=== PATIENT | male | born 1985 | race Caucasian/White ===

== ENCOUNTER 2024-05-06 09:17 | Emergency (ER) | payer SELFPAY ==
[2024-05-06 09:19] VITALS: BP 156/110
--- NOTE | 2024-05-06 10:25 | ED.GENMED ---
History of Present Illness
<Jessy Fried PA-C - Last Filed: 05/06/24 13:54>
General
Chief Complaint: Allergic Reaction
Source: patient
Exam Limitations: none
Time Seen by Provider: 05/06/24 10:23
Nursing documentation reviewed up to this point in time: agreed with
History of Present Illness
History of Present Illness:
38-year-old male with no past medical history presents for department today with concerns of a bee sting to his lower neck/upper chest and hand. Patient reports that he is allergic to bees and states that when he gets stung by a bee, he will start
to develop a diffuse rash and will start to get facial swelling. Patient states that he has never had an anaphylactic reaction to bee stings, has never had airway involvement with bee stings. Patient states the last time this happened was a few
years ago. Patient states that he started to develop a mild cough while here in the emergency department. He denies chest pain/tightness, shortness of breath, hoarseness, abdominal pain. Patient states that in regard to the bee sting on his hand, he
feels a burning sensation at the site that radiates to the elbow. He denies any nausea or vomiting. He did not take anything today for the pain. It has been 2 hours since he was stung.
Past History
<Jessy Fried PA-C - Last Filed: 05/06/24 13:54>
Past History
ED Past Medical History: None
ED Past Surgical History: None
Social History
Tobacco: Non-smoker
Review of Systems
<Jessy Fried PA-C - Last Filed: 05/06/24 13:54>
Review of Systems
All Other Systems: ROS reviewed and negative except as documented in HPI and ROS
Phy Exam
<Jessy Fried PA-C - Last Filed: 05/06/24 13:54>
Physical Exam
Physical Exam:
General: Patient is well appearing and in no acute distress; non-toxic
Skin: Warm and dry, erythematous macular rash noted to the right upper external chest wall extending into the right anterior neck. Small area of erythema and swelling noted to medial aspect of left anterior palm
Head: Normocephalic, atraumatic
Eyes: Sclera non-icteric. EOMs intact.
Mouth: No intraoral lesions, no uvular edema
Cardiac: Regular rate and rhythm
Pulm: Normal respiratory effort, no wheezes
Neuro: CN II-XII intact, no focal neurologic deficits.
Psychiatric: Appropriate mood and affect.
Course
<Jessy Fried PA-C - Last Filed: 05/06/24 13:54>
Orders/Labs/Results
Orders:
Orders
05/06/24 10:40
Dexamethasone Sod Phosphate [Decadron] 10 mg IV NOW STA
Diphenhydramine [Benadryl] 25 mg IV NOW STA
Famotidine [Pepcid] 20 mg IV NOW STA
Vital Signs
Initial and Last Documented VS:
Initial Vital Signs
Temp Pulse Resp BP Pulse Ox
98.4 F 117 18 156/110 96
05/06/24 09:19 05/06/24 09:19 05/06/24 09:19 05/06/24 09:19 05/06/24 09:19
Last Documented Vital Signs
Temp Pulse Resp BP Pulse Ox
98.4 F 79 18 132/85 96
05/06/24 09:19 05/06/24 12:23 05/06/24 12:23 05/06/24 12:23 05/06/24 12:23
<Corinne Andrade MD - Last Filed: 05/06/24 10:50>
Orders/Labs/Results
Orders:
Orders
05/06/24 10:40
Dexamethasone Sod Phosphate [Decadron] 10 mg IV NOW STA
Diphenhydramine [Benadryl] 25 mg IV NOW STA
Famotidine [Pepcid] 20 mg IV NOW STA
Vital Signs
Initial and Last Documented VS:
Initial Vital Signs
Temp Pulse Resp BP Pulse Ox
98.4 F 117 18 156/110 96
05/06/24 09:19 05/06/24 09:19 05/06/24 09:19 05/06/24 09:19 05/06/24 09:19
Last Documented Vital Signs
Temp Pulse Resp BP Pulse Ox
98.4 F 79 18 132/85 96
05/06/24 09:19 05/06/24 12:23 05/06/24 12:23 05/06/24 12:23 05/06/24 12:23
Lyubovlt;Jessy Fried PA-C - Last Filed: 05/06/24 13:54>
MDM/Problems Addressed
Differential Diagnosis Includes:
ddx include bee sting, contact dermatitis, eczema
MDM/Problems Addressed:
Bee sting,allergic reaction:
38 y/o male presents emergency department following 2 bee stings. 1 is on his chest and the other on his hand. Patient states that in the past, he has gotten full body rashes from bee stings as well as facial swelling. Patient states that he can
feel this start to progress currently. Patient denies any chest pain or shortness of breath. On exam, he is well-appearing, he is no uvular edema, his lungs are clear, he has erythematous rash noted to right upper external chest wall but no
obvious signs of facial swelling currently. Will give IV antihistamines and observe.
On reexamination, patient has had a resolution of his rash, and has not had the development of any new symptoms. Patient still denies this of breath or chest pain. He has no tongue or lip swelling. Patient stable for discharge, is been a total of
around 4 hours since the initial encounter. Patient states that his EpiPen's are , will send refill. Patient stable for discharge.
Chronic conditions affecting care:
n/a
<Jessy Fried PA-C - Last Filed: 05/06/24 13:54>
*Pulse Oximetry
Patient hypoxic: no
*Critical Care Note
Total Time (30-74mins, 75-104mins- exclusive of procedures): Not Applicable
Data Reviewed
Review of Other/Old Records Reveals: Records (reviewed ER physician documentation from 01/26/21 patient seen for bee sting) and Discharge Summary (no discharge summaries in [facility] to review )
Source: patient and records
<Jessy Fried PA-C - Last Filed: 05/06/24 13:54>
Patient Management
Escalation/DeEscalation of care consider admission/obs:
Admit not indicated, patient stable for discharge
ED Attending Note
<Jessy Fried PA-C - Last Filed: 05/06/24 13:54>
-
Portions of this chart may have been created with voice recognition software.� Occasional wrong word or��sound alike� substitutions may have occurred due to the inherent limitations of voice recognition software.
<Corinne Andrade MD - Last Filed: 05/06/24 10:50>
ED Attending Note
Patient seen and examined by attending physician: Yes
I performed the substantive portion of visit, reviewed & personally made and approve the management plan that is documented in note by myself or PETRONA.: Yes
ED Attending Note:
I have seen and evaluated the patient with a [id number] encounter. I have spoken to the PA and involved in the medical history, the physical exam, medical decision making.
Evaluation and management service: agree unless noted differently below.
Results interpretation: agree unless noted differently below.
38-year-old male with history of allergies to be presenting to the emergency department 2 hours after a bee sting. He states that he was stung in the chest and the hand. Developed redness itchiness and swelling to the chest. He states that prior
he has had facial swelling. He does not notice a change in his voice or difficulty breathing. No nausea vomiting. No diarrhea. He does not take any medications prior to arrival. Has never needed epi. On my evaluation patient is resting
comfortably. He does have diffuse erythema to the right anterior chest and right side of his neck with some swelling. No airway compromise. No stinger visualized. History and exam consistent with allergic reaction. Will treat with Benadryl
steroids and Pepcid. No need for epinephrine at this time. Will monitor to make sure symptoms do not worsen given history and anticipate discharge.
Discharge Plan
Departure
Patient Disposition: Home (Routine Discharge)
Date of Disposition: 05/06/24
Time of Disposition: 12:14
Patient with high blood pressure during this ER visit?: Yes
Condition: Good
Discharge Problem:
Allergic reaction, Bee sting
Instructions: Insect bites and stings, Allergic Reaction ED, BLOOD PRESSURE
Prescriptions:
New
epinephrine 0.3 mg/0.3 mL auto-injector
0.3 ml IM ONCE Qty: 2 0RF
No Action
methylprednisolone [Medrol (Wilber)] 4 MG tablets,dose pack
4 tab PO . DIRECT Qty: 1 0RF
epinephrine [EpiPen] 0.3 MG/0.3/SYRINGE auto-injector
0.3 mg IM ONCE Qty: 1 0RF
Referrals:
Michael Bocanegra DO [Family Provider] -
Activity Restrictions/Additional Instructions:
A refill of your epi-pens has been sent to your pharmacy. Please return to the emergency department should you experience shortness of breath, wheezing, trouble swallowing, abdominal pain, nausea or vomiting, chest tightness, chest pain, or any
other signs or symptoms concerning to you.
Please follow up with your primary care provider.
Interventions
Interventions:
*Risk Screen - Suicide Last Done: 05/06/24 09:19
*General Assessment Last Done: 05/06/24 09:19
*Neglect/Abuse Screening Last Done: 05/06/24 09:19
ED- Fall Risk Assessment Last Done: 05/06/24 10:33
*ED COVID-19 Vaccine History Last Done: 05/06/24 10:33
*Nursing Disposition Last Done: 05/06/24 12:47
ED- Cardiac Assessment Last Done: 05/06/24 10:33
ED- Pulmonary Assessment Last Done: 05/06/24 10:33
ED-Skin Assessment Last Done: 05/06/24 10:33
Discharge Date and Time
Discharge Date/Time: 05/06/24 12:48
Print Language: SERBIAN
[2024-05-06 10:38] VITALS: BP 128/95
[2024-05-06] MEDS: BENADRYL 25 MG IV (10:56)
[2024-05-06] MEDS: PEPCID 20 MG IV (10:56)
[2024-05-06] MEDS: DECADRON 10 MG IV (10:56)
[2024-05-06 11:00] VITALS: BP 123/90
--- NOTE | 2024-05-06 11:04 | EDRN ---
Patient stated that he got stung this morning by a bee on his neck and left hand. +redness noted to neck and hand. Patient denies any throat tightness or swelling. Denies any chest pain and SOB.
[2024-05-06 12:23] VITALS: BP 132/85
== END 2024-05-06 12:48 | disposition home or self-care (01) ==
LOC: EMR 09:17
PROVIDERS: EMERGENCY PHYSICIAN Student in an Organized Health Care Education/Training Program; FAMILY PHYSICIAN Family Medicine
DX: T63.441A Toxic effect of venom of bees, accidental (unintentional), initial encounter (principal); Y92.9 Unspecified place or not applicable
CPT/HCPCS: 99282; 96374; 96375